=== PATIENT | male | born 1960 | race Caucasian/White ===

== ENCOUNTER 2019-09-19 11:31 | Inpatient (IN) ==
[2019-09-19] MEDS ORDERED: TYLENOL PO PRN (12:00)
[2019-09-19] MEDS ORDERED: SALINE LOCK IV FLUID XX ONE (12:00)
[2019-09-19] MEDS ORDERED: ZOFRAN IV PRN (12:00)
[2019-09-19 12:37] LABS: BASO# 0.08 X1000 (0.0-0.2); EOS# 0.05 X1000 (0.0-0.7); EOS% 0.6 % (0.0-10.0); HEMATOCRIT 47.4 % (42.0-52.0); HEMOGLOBIN 16.3 g/dL (14.0-18.0); LYMPH% 25.1 % (20.5-51.1); MCH 30.2 PG (27-31); MCHC 34.4 g/dL (33-37); MCV 87.8 FL (81-99); MONO# 0.74 X1000 (0.11-0.59); MONO% 8.9 % (1.7-9.3); MPV 10.2 FL (7.4-10.4); NEUT# 5.39 X1000 (1.4-6.5); NEUT% 64.4 % (42.2-75.2); PLT 225 X1000 (130-400); RDW 13.3 % (11.5-14.5); WBC 8.36 X1000 (4.8-10.8)
[2019-09-19 12:51] LABS: AGAP 12; ALB/GLOB RATIO 1.2; ALBUMIN 4.1 g/dL (3.5-5.0); ALKALINE PHOSPHATASE 73 U/L (32-122); BUN 14 mg/dL (8-22); CALCIUM 9.1 mg/dL (8.8-10.2); CHLORIDE 100 mmol/L (98-107); COSMO 280; ESTIMATED GFR > 60; GLUCOSE 209 mg/dL (70-104); GOT 25 U/L (10-34); GPT 32 U/L (10-44); SODIUM 137 mmol/L (136-145); TCO2 25 mmol/L (25-35); TOTAL BILIRUBIN 0.63 mg/dL (0.20-1.00); TOTAL PROTEIN 7.4 g/dL (6.3-8.3)
[2019-09-19] MEDS: CARDENE 20 MG/NS 20 MG/200 ML PIGGYBACK IV SCH ×5 (13:02→23:35)
[2019-09-19 14:15] LABS: URINE SOURCE CLEAN CATCH
[2019-09-19 14:20] LABS: BILIRUBIN URINE NEGATIVE (NEGATIVE); BLOOD URINE NEGATIVE (NEGATIVE); COLOR STRAW; GLUCOSE URINE 500 mg/dL (NEGATIVE); KETONE URINE NEGATIVE (NEGATIVE); LEUKOCYTES URINE NEGATIVE (NEGATIVE); NITRITE URINE NEGATIVE (NEGATIVE); PROTEIN URINE NEGATIVE (NEGATIVE); SP GRAVITY URINE 1.009; TURBIDITY URINE CLEAR (CLEAR); UR EPITHELIAL CELLS <10 /HPF (<10); URINE BACTERIA NEGATIVE /HPF; URINE RBC <10 /HPF (<10); URINE WBC <10 /HPF (<10); UROBILINOGEN URINE NORMAL (NORMAL)
--- NOTE | 2019-09-19 15:06 | Diag Imaging Result Doc PS360 ---
CT HEAD W/O CONTRAST - 09/19/2019 INDICATION: rt arm/ leg weakness COMPARISON: None FINDINGS: There is a small hypodensity in the left basal ganglia, involving the posterior limb of the left internal capsule. The ventricles and sulci are normal in size and contour. No intracranial mass or hemorrhage. The skull is intact. The sinuses are clear. IMPRESSION: Probable recent lacunar infarction in the left internal capsule. This would explain right-sided extremity weakness. Consider further evaluation with a brain MRI. This exam was performed using automated exposure control, adjustment of mA or kV according to patient size, and/or use of iterative reconstruction technique Electronically signed by Real Ritchie 09/19/2019 3:03 PM
[2019-09-19] MEDS ORDERED: ASPIRIN PO STA (16:34)
--- NOTE | 2019-09-19 18:29 | HISTORY AND PHYSICAL ---
CHIEF COMPLAINT: Right arm and leg weakness. HISTORY OF PRESENT ILLNESS: The patient is a 59-year-old, white male who came in for his first visit to my office today. He relates that he woke up on 09/16/2019 with right arm and leg weakness, and his right face felt somewhat numb. He had no difficulty with talking, and he was able to ambulate. He decided to seek medical attention with his chiropractor yesterday who evaluated him and ultimately did some adjustment on his neck and decompression. This was done as he has apparently had some cervical disk problems in the past. He does admit to having rare left temporal headaches and has known about blood pressure ranging 140-160 systolically over the past 4- 5 years at times but has never sought medical attention, never been on medications for this. MEDICATIONS PRIOR TO ADMISSION: CoQ10, Advil PM 1 nightly, magnesium oxide he takes on occasion, CBD oil over the counter. ALLERGIES: Codeine has caused a rash. PAST MEDICAL HISTORY: Negative. PAST SURGICAL HISTORY: Vasectomy in 1998. FAMILY HISTORY: Notable for hypertension in his father. No stroke or diabetes in the family. No cancer in the family. Coronary artery disease was diagnosed in his father at age 80. REVIEW OF SYSTEMS: Negative except as above. SOCIAL HISTORY: The patient lives in [place]. He is x2. He has 3 children. He is a lifelong nonsmoker, does not drink alcohol. 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 PHYSICAL EXAMINATION: VITAL SIGNS: Weight 342 pounds, height 6 feet 4 inches tall, blood pressure 225/137, pulse 104, BMI 42. GENERAL: Moderately obese white male with right arm and leg weakness and minimal right facial droop. EYES: PERRL, EOMI. Sclerae clear. OROPHARYNX: No redness. Tongue in the midline. NECK: No LA, TMG, JVD, bruits. CARDIOVASCULAR: RRR. No MGR. LUNGS: CTA. BACK: No point tenderness. ABDOMEN: Protuberant, soft. No mass or organomegaly. GENITOURINARY/RECTAL: Deferred. EXTREMITIES: No calf tenderness, cords or edema. Peripheral pulses 2+. DTRs were fairly equal at 2+/4 throughout. NEUROLOGICAL: Again minimal right facial droop. There is decreased fine motor skills at the right hand and arm, and he has weakness at the left leg mild to moderate. He is able to bear weight with some prominently antalgic gait, downgoing toes bilaterally on Babinski. ASSESSMENT: 1. Hypertensive emergency. 2. Subacute cerebrovascular accident with right arm and leg weakness and minimal right facial droop. PLAN: We will admit the patient to the ICU, place him on telemetry. Check CT head without contrast now, and we will check MRI of the brain later on. We will place him on IV Cardene drip to moderate his blood pressure. Check CBC, CMP, sedimentation rate, urinalysis to look for proteinuria. We will check carotid Dopplers and echocardiogram tomorrow. May place him on aspirin if the CT head fails to show hemorrhage. We will try to moderate his blood pressure fairly slowly and monitor frequent neurological checks. In the morning, we will check hemoglobin A1c and fasting lipid profile. Consider neurology evaluation as well. cc: Chucho Granados MD
[2019-09-19] MEDS: HUMULIN R SUBQ SCH (20:34)
[2019-09-20 06:35] LABS: HEMOGLOBIN A1C 7.8 % (4.8-6.0)
[2019-09-20 06:51] LABS: CHOLESTEROL 177 mg/dL (0-200); HDL 41 mg/dL (35-55); LDL 115 mg/dL; TRIGLYCERIDES 104 mg/dL (39-160); VLDL 21 mg/dL
[2019-09-20] MEDS: HUMULIN R SUBQ SCH ×4 (07:01→20:58)
[2019-09-20] MEDS ORDERED: MICARDIS PO SCH (09:00)
[2019-09-20] MEDS: CATAPRES PO PRN (09:25)
[2019-09-20] MEDS: ASPIRIN EC PO SCH (09:25)
[2019-09-20] MEDS: NORVASC PO SCH (09:25)
--- NOTE | 2019-09-20 14:21 | EKG Report ---
Test Performed on : 09/20/2019 1:34:59 PM Test Reason : CP Blood Pressure : / mmHG Vent. Rate : 092 BPM Atrial Rate : 092 BPM P-R Int : 180 ms QRS Dur : 118 ms QT Int : 390 ms P-R-T Axes : 036 -34 049 degrees QTc Int : 482 ms Normal sinus rhythm. Left axis deviation Nonspecific intraventricular conduction delay Prolonged QT Abnormal ECG No previous ECGs available Confirmed by Asa Maher MD ([id number]) on 09/21/2019 7:37:41 PM
--- NOTE | 2019-09-20 15:28 | NEUROLOGY CONSULTATION ---
DATE: 09/20/2019 HISTORY: Mr. Rodriguez is 59 years old and he had recent onset of clumsiness in the right limbs. He reports going to bed feeling well and then waking 4 days ago with clumsiness in the right limbs. He had some gait difficulty. He did not notice slurred speech, vision disturbance, definite facial asymmetry, trouble understanding language. He has had some mild headache off and on and he reports mild headache present that morning, but not intense headache. There was never altered awareness, collapse, unconsciousness, memory gap. He managed that problem conservatively through the first day without noticing significant change. The next day, he noted symptoms were less prominent. The 3rd day, symptoms were more prominent. He presented for medical attention yesterday and was admitted. He believes he is little bit better today. He presented with systolic blood pressures 220s-250s. He reports blood pressures systolic 160s in the past. He has never had diagnosed diabetes mellitus. Blood sugars have been 200s here with A1c 7.8%. He has not had diagnosed dyslipidemia. He reports no prior history of stroke, no seizure, no prior similar right-sided weakness or clumsiness, no serious head injury. He does not abuse ethanol. He denies illicit drug use. He does not smoke cigarettes. He was taking no prescription medicines regularly prior to this admission. He did take [id number] supplements and vitamins. DATA: Workup here includes noncontrast CT of the head which shows a small lucency in the left internal capsular area. Brain MRI was planned, but his shoulders are too broad to fit in our scanner. He reports discovering similar problem with this MRI in the past, but he was able to tolerate local open scanner. PHYSICAL EXAMINATION: He has been afebrile. Systolic blood pressures were elevated initially as above, recently 130s to 170s. Mr. Rodriguez is awake, alert, attentive, appropriate, oriented. Speech is not dysarthric. Language function is intact on bedside testing. Recent and remote memory good. Head and neck are unremarkable. Visual chávez are full to confrontational finger counting in all quadrants. Extraocular movements are good. Pupils react to light. The right nasolabial fold is slightly less prominent than the left but facial motility is good bilaterally. Gag is intact. Tongue is midline. Shoulder shrug is good bilaterally. He has normal power and coordination in the left limbs. On the right, I can just barely overcome the arm at the deltoid grading 4+/5 and at the iliopsoas, grading 4+/5. Tone is similar on the left and right without definite asymmetry. He has significant right hemiataxia, with [id number] and [id number] testing. He did rapid alternating movements much better with the left hand and than with his dominant right hand. He reports equal pinprick and light touch appreciation over the limbs. Proprioception is good at the great toe MTP joint bilaterally and at the right second finger PIP joint. I did not test his gait. IMPRESSION: Relatively isolated prominent right hemiataxia. The small subcortical left hemisphere lucency note on CT may represent recent infarction and could certainly account for his right limb deficit, but the degree of ataxia more than weakness is concerning for possibility of a posterior fossa event. CT does not show this area well. I agree with plans for MRI when practical. In light of his 4 day course with stable deficit, I think we can continue to treat his blood pressure and blood sugar as you are doing and arrange for outpatient open MRI soon after discharge. If he deteriorates, we might need to consider repeat CT. I agree with plans for carotid ultrasound and physical therapy as ordered. Further plans will depend on his clinical course and results of workup. Thanks for asking Neurology to see Mr. Rodriguez. cc: MD Chucho Flanagan III, MD MTDD
--- NOTE | 2019-09-20 15:44 | PROGRESS NOTE ---
DATE: 09/20/2019 The patient remains in ICU and is stable. He has had continued difficulty with fine motor skills with his right hand and some weakness in his right leg. Minimal right facial droop. He has been evaluated by Dr. Espinal. He was unable to fit in the MRI machine and that will have to be done as an outpatient. His blood pressure has moderated with Cardene drip and we are transitioning him over to oral medication in that regard. He denies other symptoms. OBJECTIVE: Afebrile, pulse 86, respirations 19, blood pressure 161/98, O2 saturation 93-96% on room air.CV: Regular rate and rhythm without murmur. Lungs: Clear to auscultation. Extremities: No edema. Some mild to moderate weakness in the right arm and leg. Minimal right facial droop. LABORATORY DATA: CBC normal. Sedimentation rate of 11. CMP normal, except for elevated blood sugar of 209. A1c 7.8. Total cholesterol 177, triglycerides 104, LDL 115, HDL 41. Urinalysis negative for protein and otherwise negative. EKG shows sinus rhythm with left axis deviation. No LVH by voltage criteria. CT scan of the head yesterday revealed probable recent lacunar infarction left internal capsule. Carotid Dopplers and echocardiogram results pending. ASSESSMENT: 1. Hypertensive emergency, improved. 2. Subacute cerebrovascular accident, ischemic variety with right arm and leg weakness and minimal right facial droop. 3. Newly diagnosed type 2 diabetes mellitus. 4. Mild hypercholesterolemia. 5. Obesity. PLAN: Await carotid Dopplers and echo results. Continue daily aspirin. We discussed statin addition in the form of Crestor 10 mg nightly, but patient is unwilling to start that at this time, citing concerns for possible side effects. We will change him from Cardene drip to Micardis and Norvasc and give him p.r.n. clonidine as required. We will allow his blood pressure to range modestly elevated while we plan on working that down gradually due to his recent CVA. Dietitian will discuss ADA diet with the patient and patient is familiar with ADA diet as his is a diabetic. At discharge we will plan on adding Synjardy, but at this time we will plan on continuing SSI as he is undergoing frequent tests, monitor Accu-Cheks. Continue physical therapy that has begun. Possible discharge tomorrow with outpatient open MRI of the brain tomorrow. cc: Chucho Granados MD
--- NOTE | 2019-09-20 17:23 | ECHO REPORT ---
ORDER DATE: 09/20/2019 MEASUREMENTS: Septal thickness 1.5. Left ventricular internal diameter in diastole 4.1, posterior wall thickness 1.3. Left ventricular internal diameter in systole 2.7, aortic root 3.6. SUMMARY: 1. Technically difficult study due to limited acoustic window quality. Intravenous echo contrast agent Optison was utilized to enhance endocardial definition. 2. Aortic valve is not well imaged but is probably trileaflet. Aortic valve opening appears to be adequate. The peak gradient across the aortic valve is 14 mmHg with a mean gradient of 9 mmHg. Mitral, tricuspid, and pulmonic valves are without evidence of structural abnormality. There is trace tricuspid regurgitation. Aortic root is normal size. 3. Normal left ventricular chamber size with mild to moderate concentric left ventricular hypertrophy is demonstrated. Estimated left ejection fraction appears to be greater than 70%. No regional wall motion abnormality is evident. Doppler suggests grade 1 left ventricular diastolic dysfunction. The left atrium is mildly enlarged. Right atrium and right ventricle are normal size with normal right ventricular systolic function. 4. No pericardial effusion. 5. Inferior vena cava not well demonstrated. CONCLUSIONS: 1. Technically difficult study. 2. No significant valvular abnormality evident. 3. Mild to moderate concentric left hypertrophy with estimated ejection fraction greater than 70%. 4. Grade 1 left ventricular diastolic dysfunction suggested. 5. Mild left atrial enlargement suggested. cc: MD Chucho Bey MD
[2019-09-20] MEDS ORDERED: CRESTOR PO SCH (21:00)
[2019-09-21] MEDS: HUMULIN R SUBQ SCH ×3 (06:21→16:14)
[2019-09-21] MEDS: CATAPRES PO PRN (06:27)
[2019-09-21] MEDS: ASPIRIN EC PO SCH (09:42)
[2019-09-21] MEDS: NORVASC PO SCH (09:42)
[2019-09-21] MEDS: MICARDIS PO SCH (09:43)
[2019-09-21] MEDS: GLUCOPHAGE XR PO SCH (17:25)
--- NOTE | 2019-09-21 21:41 | PROGRESS NOTE ---
DATE: 09/21/2019 SUBJECTIVE: The patient seen earlier in the day when he was in ICU. Blood pressure has been quite labile so I had planned on possible discharge but the blood pressure had run up to 113 at 1 point and was fairly low at 1 point during the night as well. He has had no progression of symptoms, still weak with fine motor skills in his right arm and hand. Some weakness, moderate, in the right leg. Physical therapy had started working with the patient last evening. OBJECTIVE: Vital Signs: See chart. Afebrile. CV: RRR without murmur. Lungs: CTA. Extremities: No calf tenderness, cords, edema. Still moderate weakness right arm and leg. Minimal right facial droop. No difficulty with speech. Patient too large to fit into the MRI machine. IMAGING DATA: Carotid Doppler tests are negative for significant blockage at 0 to 39 percent bilaterally. Echocardiogram, LVH with normal ejection fraction, early diastolic dysfunction. ASSESSMENT: 1. Hypertensive emergency, improving but still prominent. 2. Subacute cerebrovascular accident, ischemic variety with right arm and leg weakness, minimal right facial droop. 3. Newly diagnosed type 2 diabetes mellitus. 4. Mild hypercholesterolemia. 5. Obesity. PLAN: We will continue to fine tune his blood pressure. Will increase the Micardis to 80 mg daily. Continue Norvasc 5 mg daily. We will monitor his blood pressure through the day and add metoprolol later in the evening, if needed, for better blood pressure control. We discussed metformin and will start that this evening and then stop his SSI. He refuses treatment with statin agents, so will offer low cholesterol ADA diet. Continue aspirin at full dose. We will plan on outpatient MRI of brain with and without contrast at an open MRI facility. Continue vigorous physical therapy. Possible discharge in 24 to 48 hours. Will transfer him out of the ICU when bed available. cc: Chucho Granados MD
[2019-09-21] MEDS: LOPRESSOR PO SCH (22:09)
[2019-09-22 03:23] LABS: URINE SOURCE CLEAN CATCH
[2019-09-22 03:34] LABS: BILIRUBIN URINE NEGATIVE (NEGATIVE); BLOOD URINE NEGATIVE (NEGATIVE); COLOR YELLOW; GLUCOSE URINE NEGATIVE (NEGATIVE); KETONE URINE 10 mg/dL (NEGATIVE); LEUKOCYTES URINE MODERATE (NEGATIVE); NITRITE URINE NEGATIVE (NEGATIVE); PROTEIN URINE NEGATIVE (NEGATIVE); SP GRAVITY URINE 1.008; TURBIDITY URINE CLEAR (CLEAR); UROBILINOGEN URINE NORMAL (NORMAL)
[2019-09-22 03:36] LABS: UR EPITHELIAL CELLS <10 /HPF (<10); URINE BACTERIA 1+ /HPF; URINE RBC <10 /HPF (<10); URINE WBC 20-40 /HPF (<10)
--- NOTE | 2019-09-22 08:33 | Carotid Study ---
DATE: 09/20/2019 REFERRING PHYSICIAN: Dr. Granados. READING PHYSICIAN: Dr. Benedicto Colon. BASEBALL UMPIRE [employer]AG[employer]: Chet. INDICATION: Stroke. FINDINGS: There are no significant atherosclerotic changes in either carotid system. There is antegrade vertebral flow bilaterally. Percent stenosis is 0 to 39 percent bilaterally. INTERPRETATION: Unremarkable carotid imaging study. cc: MD Chucho Valentino MD
[2019-09-22] MEDS: GLUCOPHAGE XR PO SCH (09:50)
[2019-09-22] MEDS: ASPIRIN EC PO SCH (09:51)
[2019-09-22] MEDS: LOPRESSOR PO SCH (09:51)
[2019-09-22] MEDS: NORVASC PO SCH (09:51)
[2019-09-22] MEDS: MICARDIS PO SCH (09:51)
--- NOTE | 2019-09-22 13:18 | NEUROLOGY PROGRESS NOTE ---
DATE: 09/22/2019 Mr. Rodriguez has not had any significant neurologic change. He reports there may be a "marginal" improvement in the right limb clumsiness. He has not yet agreed to start statin drug. Blood pressures have been 140s-180s over the last 24 hours. Echocardiogram showed no source of embolus, ejection fraction greater than 70%. Carotid ultrasound was unremarkable. We reviewed the CT findings On exam, he has good power in the right arm tested grossly. Ataxia is slightly improved in the right arm tested grossly. He continues to have full visual chávez and no definite sensory deficit. I did not test his gait. Speech is not dysarthric. Language function continues intact. Neck is supple. IMPRESSION: Right hemiataxia with question of acute cerebral infarction as demonstrated on CT in the left internal capsular region versus possibility that he might have an as yet undocumented acute right cerebellar infarction. Outpatient brain MRI has been scheduled on open scanner which he can tolerate. Further plans will depend on that report. We discussed his risk factors for cerebrovascular ischemic problems at some length. I strongly encouraged him to be aggressive with management of his blood pressure. I suggested that he take daily aspirin. We discussed adding clopidogrel and I did not recommend that at this point. We discussed fairly strong recommendation that he consider taking a statin drug for endothelial benefit if not simply for lipid benefit. I also suggested that he either be treated for diabetes mellitus short term or that he be checked aggressively to confirm as he states adamantly, that he does not have diabetes mellitus. We discussed folic acid and very uncertain benefit for homocystine and stroke risk. I encouraged him to be careful with activities, to stay well hydrated, to try to stay well rested, to try to manage stress. I told him he should not get into any situation in which loss of fine motor control in the right limbs might result in injury to him or to someone else. I will be glad to see Mr. Rodriguez as an outpatient. Thanks for asking Neurology to see him here. cc: MD Chucho Flanagan III, MD MTDD
[2019-09-22 13:32] VITALS: BP 174/89
--- NOTE | 2019-09-22 13:54 | PROGRESS NOTE ---
DATE: 09/22/2019 SUBJECTIVE: Patient stable. No new complaints. He is contemplating use of a statin, but has not decided on that in particular. He spoke with Dr. Espinal about it in detail. He has decided on metformin rather then [*] regarding the blood sugar control. OBJECTIVE: vital signs: Afebrile, pulse 74, respirations 16 to 18, blood pressure earlier this morning 148/85, now 177/92, O2 saturation room air 99. Cardiovascular: RRR without murmur. Lungs: CTA. Neurologic: Right facial droop, moderate weakness right arm and leg, not severe. Ambulates with an antalgic gait. Decreased fine motor skills, right arm and leg. ASSESSMENT: 1. Hypertension, improved, but still needs fine tuning outpatient. He will follow up with me in 2 weeks and we will continue to work on his blood pressure. 2. Cerebrovascular accident ischemic variety with right arm and leg weakness and minimal right facial droop. 3. Newly diagnosed type 2 diabetes mellitus. 4. Mild hypercholesterolemia. 5. Obesity. PLAN: We will discharge patient home on Norvasc 5 daily, Micardis 80 daily, metoprolol 25 b.i.d., metformin ER 500 b.i.d., Ecotrin 325 mg daily. He declines cholesterol treatment at this time. We will set him up outpatient physical therapy with results PT and has been arranged already for him to have MRI of the brain with and without contrast at the open MRI facility in 4 days, as he does not fit in the MRI machine here at the hospital. He knows if he has difficulties he can call or come back to the office. Otherwise, follow him up in 2 weeks indication. cc: Chucho Granados MD
== END 2019-09-22 15:09 | disposition home or self-care (01) | DRG 304 ==
LOC: DIRADM 11:31 → ICU 11:50 → 4N 09-21 18:43
PROVIDERS: ADMIT Family Medicine; ATTEND Family Medicine